=== PATIENT | female | born 1940 | race Caucasian/White ===

== ENCOUNTER 2020-08-06 06:06 | Day surgery (SDC) | payer OTHER, BC ==
[2020-08-05 16:59] VITALS: BMI 26.4
[2020-08-06] MEDS ORDERED: LIDOCAINE HCL 1%, 10 MG/ML (20ML VIAL) ONE (16:42)
[2020-08-06] MEDS ORDERED: LIDOCAINE HCL/PF 1% SDV 5ML VIAL ONE (16:43)
[2020-08-06] MEDS ORDERED: LIDOCAINE 1% P/F 10 MG/ML VIAL INF ONE (17:00)
[2020-08-06] MEDS ORDERED: DEXAMETHASONE SOD PHOSPHATE 10 MG/1 ML VIAL IM ONE (17:00)
[2020-08-06] MEDS ORDERED: IOHEXOL 180 MG/1 ML ML IJ ONE (17:07)
[2020-08-06 18:34] VITALS: BP 140/82; PULSE 95; TEMP 98
== END 2020-08-06 18:49 | disposition home or self-care (01) ==
LOC: JASU-SURG 06:06
PROVIDERS: ATTEND Pain Medicine Pain Medicine
PROC: 3E0R33Z Introduction of Anti-inflammatory into Spinal Canal, Percutaneous Approach (ICD-10-PCS; 2020-08-06)
PROC: B01BYZZ Fluoroscopy of Spinal Cord using Other Contrast (ICD-10-PCS; 2020-08-06)
PROC: 3E0R3BZ Introduction of Anesthetic Agent into Spinal Canal, Percutaneous Approach (ICD-10-PCS; principal; 2020-08-06 16:00)
DX: M48.061 Spinal stenosis, lumbar region without neurogenic claudication (principal); M54.16 Radiculopathy, lumbar region
CPT/HCPCS: 76000-TC-FY; J1100

== ENCOUNTER 2020-09-17 04:23 | Day surgery (SDC) | payer OTHER, BC ==
[2020-09-15 19:41] VITALS: BMI 26.4
[2020-09-17] MEDS ORDERED: DEXAMETHASONE SOD PHOSPHATE/PF 10 MG/ML SDV ONE (07:23)
[2020-09-17] MEDS ORDERED: LIDOCAINE HCL/PF 1% SDV 5ML VIAL ONE (07:23)
[2020-09-17] MEDS ORDERED: TRIAMCINOLONE ACET 40MG/1ML VIAL ONE (07:23)
[2020-09-17] MEDS ORDERED: BUPIVACAINE HCL/PF 0.75% 10 ML VIAL ONE (07:23)
[2020-09-17] MEDS ORDERED: LIDOCAINE HCL 1% PRESERVATIVE FREE - 30ML VIAL INF ONE ×2 (12:22→12:24)
[2020-09-17 16:08] VITALS: BP 125/76; PULSE 86; TEMP 97.8
== END 2020-09-17 15:30 | disposition home or self-care (01) ==
LOC: JASU-SURG 04:23
PROVIDERS: ATTEND Pain Medicine Pain Medicine
PROC: 01HY3MZ Insertion of Neurostimulator Lead into Peripheral Nerve, Percutaneous Approach (ICD-10-PCS; principal; 2020-09-17 12:30)
DX: G89.4 Chronic pain syndrome (principal); M54.5 Low back pain
CPT/HCPCS: 64555; C1778; 76000-TC-FY

== ENCOUNTER 2020-10-15 04:23 | Day surgery (SDC) | payer OTHER, BC ==
[2020-10-15] MEDS ORDERED: DEXAMETHASONE SOD PHOSPHATE/PF 10 MG/ML SDV ONE (07:32)
[2020-10-15] MEDS ORDERED: LIDOCAINE HCL 1%, 10 MG/ML (20ML VIAL) ONE (07:32)
[2020-10-15] MEDS ORDERED: LIDOCAINE HCL 1% PRESERVATIVE FREE - 30ML VIAL IJ ONE ×2 (11:08)
[2020-10-15 12:35] VITALS: BP 122/72; PULSE 75; TEMP 98
== END 2020-10-15 13:33 | disposition home or self-care (01) ==
LOC: JASU-SURG 04:23
PROVIDERS: ATTEND Pain Medicine Pain Medicine
PROC: 3E0T3BZ Introduction of Anesthetic Agent into Peripheral Nerves and Plexi, Percutaneous Approach (ICD-10-PCS; 2020-10-15)
PROC: BR16ZZZ Fluoroscopy of Lumbar Facet Joint(s) (ICD-10-PCS; 2020-10-15)
PROC: 01HY3MZ Insertion of Neurostimulator Lead into Peripheral Nerve, Percutaneous Approach (ICD-10-PCS; principal; 2020-10-15 10:30)
PROC: 4B01XVZ Measurement of Peripheral Nervous Stimulator, External Approach (ICD-10-PCS; 2020-10-15 10:30)
DX: G89.4 Chronic pain syndrome (principal); M54.5 Low back pain
CPT/HCPCS: 64555; C1778; 76000-TC-FY

== ENCOUNTER 2021-02-04 04:32 | Day surgery (SDC) | payer OTHER, BC ==
[2021-02-03 11:42] VITALS: BMI 25.2
[2021-02-04] MEDS ORDERED: LIDOCAINE HCL 2% (50ML VIAL) INF ONE (16:12)
[2021-02-04 17:13] VITALS: BP 125/68; PULSE 80; TEMP 97.8
== END 2021-02-04 15:41 | disposition home or self-care (01) ==
LOC: JASU-SURG 04:32
PROVIDERS: ATTEND Pain Medicine Pain Medicine
PROC: 01HY3MZ Insertion of Neurostimulator Lead into Peripheral Nerve, Percutaneous Approach (ICD-10-PCS; principal; 2021-02-04 16:01)
DX: G89.4 Chronic pain syndrome (principal); M54.5 Low back pain
CPT/HCPCS: 64555; C1778

== ENCOUNTER 2021-02-23 05:12 | Day surgery (SDC) | payer OTHER, BC ==
[2021-02-21 17:03] VITALS: BMI 25.2
[2021-02-23] MEDS ORDERED: TRIAMCINOLONE ACET 40MG/1ML VIAL ONE (07:15)
[2021-02-23] MEDS ORDERED: BUPIVACAINE HCL/PF 0.25% (2.5MG/ML) 10 ML VIAL ONE (07:16)
[2021-02-23] MEDS ORDERED: LIDOCAINE HCL 1%, 10 MG/ML (20ML VIAL) ONE (07:16)
[2021-02-23] MEDS ORDERED: BUPIVACAINE HCL/PF 0.75% 10 ML VIAL ONE (07:16)
[2021-02-23] MEDS ORDERED: BUPIVACAINE HCL/PF 0.5% (5MG/ML) 10 ML VIAL ONE (07:16)
[2021-02-23] MEDS ORDERED: LIDOCAINE HCL/PF 1% SDV 5ML VIAL ONE (07:39)
[2021-02-23] MEDS ORDERED: LIDOCAINE 1% P/F 10 MG/ML VIAL INF ONE (08:32)
[2021-02-23 09:53] VITALS: PULSE 80; TEMP 97.3
[2021-02-23 12:30] VITALS: BP 110/60
== END 2021-02-23 10:10 | disposition home or self-care (01) ==
LOC: JASU-SURG 05:12
PROVIDERS: ATTEND Pain Medicine Pain Medicine
PROC: 01HY3MZ Insertion of Neurostimulator Lead into Peripheral Nerve, Percutaneous Approach (ICD-10-PCS; principal; 2021-02-23 08:00)
PROC: 4B01XVZ Measurement of Peripheral Nervous Stimulator, External Approach (ICD-10-PCS; 2021-02-23 08:00)
DX: G89.4 Chronic pain syndrome (principal); M54.5 Low back pain
CPT/HCPCS: 64555; C1778; 76000-TC-FY

== ENCOUNTER 2021-06-28 04:56 | Day surgery (SDC) | payer OTHER, BC ==
[2021-06-28 10:01] VITALS: BMI 23.6
[2021-06-28] MEDS ORDERED: LIDOCAINE HCL 1% PRESERVATIVE FREE - 30ML VIAL PNB ONE (11:48)
[2021-06-28 12:52] VITALS: BP 131/71; PULSE 70; TEMP 97.7
== END 2021-06-28 13:00 | disposition home or self-care (01) ==
LOC: JASU-SURG 04:56
PROVIDERS: ATTEND Pain Medicine Pain Medicine
PROC: 01HY3MZ Insertion of Neurostimulator Lead into Peripheral Nerve, Percutaneous Approach (ICD-10-PCS; principal; 2021-06-28 11:00)
DX: G89.4 Chronic pain syndrome (principal); M54.50 Low back pain, unspecified
CPT/HCPCS: 64555; C1897; 76000-TC-FY